=== PATIENT | female | born 1945 | race Two or more races ===

== ENCOUNTER 2022-04-28 10:25 | Emergency (ER) | payer OTHER ==
[~2022-04-28] VITALS: Ht 152.4 cm; Wt 56.7 kg
[2022-04-28] MEDS ORDERED: JANUMET 50-1,01 EACH PO (11:01)
[2022-04-28] MEDS ORDERED: ZOCOR40 MG PO (11:01)
[2022-04-28] MEDS ORDERED: ATACAND16 MG (11:01)
[2022-04-28] MEDS ORDERED: GLUCOTROL XL5 MG PO (11:01)
[2022-04-28] MEDS ORDERED: ADULT LOW DOSE81 M1 (11:02)
[2022-04-28] MEDS ORDERED: AMOX-CLAV 875-1 EACH PO (11:28)
== END 2022-04-28 12:35 | disposition home or self-care (01) ==
LOC: ER 10:25
DX: S61.252A Open bite of right middle finger without damage to nail, initial encounter (principal); W55.01XA Bitten by cat, initial encounter; Y93.9 Activity, unspecified; Y92.480 Sidewalk as the place of occurrence of the external cause; E11.9 Type 2 diabetes mellitus without complications; Z79.84 Long term (current) use of oral hypoglycemic drugs; I10 Essential (primary) hypertension